=== PATIENT | male | born 1940 | race Caucasian/White ===

== ENCOUNTER 2017-08-09 10:39 | Inpatient (IN) | payer MEDICARE, OTHER ==
[~2017-08-09] VITALS: Ht 167.6 cm; Wt 72.6 kg
[2017-08-09] VITALS (21 sets, daily range): BP systolic 97–165; BP diastolic 55–99
--- NOTE | 2017-08-09 10:39 | NUR ---
BIBRA 102 C/O N/V/D X YESTERDAY. C/O DIFFUSE LOWER QUADRANT ABD PAIN. PLACED ON MONITOR. AWAITING MD ORDER
[2017-08-09] MEDS ORDERED: IOHEXOL-350 100 ML VIAL IV ONE (11:17)
[2017-08-09 11:23] LABS: BASOPHILS % (AUTO) 0.8 % (0.0-2.0); EOSINOPHILS % (AUTO) 0.8 % (0.0-6.0); HEMATOCRIT 39 % (39-51); HEMOGLOBIN 13.2 g/dL (13.5-17.5); LYMPHOCYTES # (AUTO) 1.6 /CMM (0.8-4.8); LYMPHOCYTES % (AUTO) 33.8 % (20.0-44.0); MEAN CORPUSCULAR HGB CONC 34 g/dl (31.0-36.0); MEAN CORPUSCULAR VOLUME 89 fL (80-96); MONOCYTES # (AUTO) 0.3 /CMM (0.1-1.30); MONOCYTES % (AUTO) 6.7 % (2.0-12.0); NEUTROPHILS # (AUTO) 2.9 /CMM (1.8-8.9); NEUTROPHILS % (AUTO) 57.9 % (43.0-81.0); PLATELET COUNT (AUTO) 235 /CMM (150-450); RDW COEFFICIENT OF VARIATION 12.3 (11.5-15.0); RED BLOOD CELL COUNT(AUTO) 4.33 MIL/uL (4.5-6.0); WHITE BLOOD COUNT (AUTO) 4.8 K/uL (4.3-11.0)
--- NOTE | 2017-08-09 11:27 | NUR ---
PT TAKEN TO CT
[2017-08-09 11:28] LABS: CALCIUM, SERUM 8.9 mg/dL (8.5-10.1); CARBON DIOXIDE 28 mmol/L (21-32); CHLORIDE 106 mmol/L (98-107); GLUCOSE 122 mg/dL (74-106); POTASSIUM 3.9 mmol/L (3.5-5.1); SODIUM SERUM 138 mmol/L (136-145); UREA NITROGEN, BLOOD 21 mg/dL (7-18)
--- NOTE | 2017-08-09 11:28 | NUR ---
URINE SAMPLE COLLECTED SENT TO LAB
[2017-08-09 11:30] LABS: APPEARANCE,URINE Clear (CLEAR); BILIRUBIN,URINE Negative (NEGATIVE); BLOOD, URINE Negative Ery/uL (NEGATIVE); COLOR,URINE Yellow (YELLOW); KETONES,URINE Negative (NEGATIVE); LEUKOCYTE ESTERASE ,URINE Negative (NEGATIVE); NITRITE, URINE Negative (NEGATIVE); PH,URINE 7.5 (5.0-8.0); PROTEIN,URINE Negative (NEGATIVE); UGLUCOSE Negative (NEGATIVE); UROBILINOGEN,URINE 0.2 EU/dL (0.2)
[2017-08-09] MEDS ORDERED: IV NS 0.9% 1,000 ML BAG IV ONE (11:30)
[2017-08-09] MEDS ORDERED: ONDANSETRON HCL/PF 4 MG/2 ML VIAL IVP ONE (11:30)
[2017-08-09] MEDS ORDERED: MORPHINE SULFATE INJ 2 MG/ML DISP.SYRIN IV ONE (11:30)
[2017-08-09 11:31] LABS: INR 1.03 (0.85-1.15)
[2017-08-09] MEDS ORDERED: ONDANSETRON HCL/PF 4 MG/2 ML VIAL ONE (11:34)
[2017-08-09 11:35] LABS: ALANINE AMINOTRANSFERASE 13 U/L (12-78); ALBUMIN 3.5 g/dL (3.4-5.0); ALKALINE PHOSPHATASE 103 U/L (46-116); ASPARTATE AMINOTRANSFERASE 15 U/L (15-37); BILIRUBIN,DIRECT 0.1 mg/dL (0.0-0.2); BILIRUBIN,TOTAL 0.5 mg/dL (0.2-1.0); TOTAL PROTEIN, SERUM 6.9 g/dL (6.4-8.2)
[2017-08-09] MEDS ORDERED: MORPHINE SULFATE INJ 4 MG/ML DISP.SYRIN ONE (11:35)
[2017-08-09 11:36] LABS: TROPONIN I < 0.017 ng/mL (0.00-0.056)
[2017-08-09] MEDS ORDERED: LABETALOL HCL IV 100MG VIAL ONE (13:18)
--- NOTE | 2017-08-09 13:21 | NUR ---
CALLED ANSWERING SERVICE, SINTER MACHINE OPERATOR, TRANSFERRED CALL TO .
--- NOTE | 2017-08-09 13:25 | NUR ---
NOTIFIED MD MELENDEZ OF HEART RATE 47-50 BPM. BETABLOCKER ADMINISTRATION TO PUT ON HOLD TILL FURTHER ORDER
[2017-08-09] MEDS ORDERED: NITROPRUSSIDE SODIUM 50 MG in IV D5W 250 ML IV PRN (13:30)
[2017-08-09] MEDS ORDERED: ESMOLOL IVPB PREMIX 250 ML IV PRN (13:30)
[2017-08-09] MEDS ORDERED: LABETALOL 20 MG/4 ML VIAL IV ONE (13:30)
--- NOTE | 2017-08-09 13:30 | NUR ---
EPIC PAGED, BILL CLERK
--- NOTE | 2017-08-09 13:30 | NUR ---
PATIENT REFUSED SECOND IV INSERTION, EXPLAINED RISKS AND BENEFITS, STARTED YELLING AND CURSING. NOTIFIED
[2017-08-09] MEDS ORDERED: NTG 50 MG/D5W250 ML BOTTL 250 ML IV ONE ×2 (13:48→14:00)
--- NOTE | 2017-08-09 13:51 | NUR ---
[facility] REPAGED
--- NOTE | 2017-08-09 13:57 | NUR ---
STARTED PATIENT ON NITRO DRIP PER MD ORDER.
--- NOTE | 2017-08-09 14:00 | NUR ---
PATIENT DENIES ANY PAIN AT THIS TIME
--- NOTE | 2017-08-09 14:33 | NUR ---
ICU 254 FOR AAA, ADMITTING
--- NOTE | 2017-08-09 14:45 | NUR ---
PATIENT ASLEEP. VSS
--- NOTE | 2017-08-09 14:55 | NUR ---
REPORT GIVEN TO HAMMAD DONOHUE
--- NOTE | 2017-08-09 15:16 | NUR ---
PATIENT STATED "I AM DOCTOR VERONIKA/ CINDY MASTERS'S PATIENT" DURING TRANSFER IN ICU
--- NOTE | 2017-08-09 15:18 | NUR ---
PATIENT WOKE UP, UPSET, BEING IN S[facility],. EXPLAINED TO THE PATIENT THE RISKS AND BENEFITS OF STAYING THE HOSPITAL. AGREED
--- NOTE | 2017-08-09 15:20 | NUR ---
RN INITIAL NOTES RECEIVED PT FROM ER VIA YOHAN. PT AWAKE, A/OX4. PLACED COMFORTABLY IN BED. CONNECTED TO MONITOR. PT SINUS BRADYCARDIA, 55. IV LINE IN PLACE. ON NITROGLYCERIN DRIP AT 50MCG/MIN. PT C/O ABDOMINAL PAIN, TENDER TO TOUCH. BODY ASSESSMENT DONE. LEFT FOOT SCAB NOTED. PICTURE TAKEN AND PLACED IN THE CHART. PT CONTINENT. PREFERS TO USE URINAL. BLE ELEVATED. DR. WAYNE AWARE OF ADMISSION. ADMISSION ORDERS NOTED AND CARRIED OUT. AWAITING DR. ROCHE FOR CONSULT. PT COMFORTABLE. ORIENTED TO ROOM AND USE OF CALL LIGHT. WILL CONTINUE TO MONITOR.
[2017-08-09] MEDS ORDERED: ONDANSETRON HCL/PF 4 MG/2 ML VIAL IVP PRN (15:30)
[2017-08-09] MEDS ORDERED: MAGNESIUM HYDROXIDE 30 ML UDC PO PRN (15:30)
[2017-08-09] MEDS ORDERED: MORPHINE SULFATE INJ 2 MG/ML DISP.SYRIN IV PRN ×2 (15:30)
[2017-08-09] MEDS ORDERED: MAG HYDROX/AL HYDROX/SIMETH 30 ML UDC PO PRN (15:30)
[2017-08-09] MEDS ORDERED: Z GUARD REMEDY 2 OZ OINT TP PRN (15:30)
[2017-08-09] MEDS ORDERED: ACETAMINOPHEN 325 MG TABLET PO PRN (15:30)
[2017-08-09] MEDS ORDERED: ZOLPIDEM TARTRATE 5 MG TABLET PO PRN (15:30)
[2017-08-09] MEDS ORDERED: HYDROCODONE/APAP 5/325MG 1 EACH TABLET PO PRN (15:30)
--- NOTE | 2017-08-09 15:58 | NUR ---
RN NOTES CALLED DR WAYNE TO CLARIFY NITROPRUSSIDE ORDER FROM ER. PT RECEIVED FROM ER WITH NITROGLYCERIN DRIP AT 50MCG/MIN. PT'S SBP 130S, HR 50S. CLARIFIED NITROPRUSSIDE PARAMETER TO KEEP SBP <140. NOTED AND CARRIED OUT.
[2017-08-09] MEDS: NITROPRUSSIDE SODIUM 50 MG in IV D5W 250 ML IV PRN (16:24)
--- NOTE | 2017-08-09 16:30 | NUR ---
RN NOTES SEEN AND EXAMINED BY DR. WAYNE. PT A/OX4. C/O LESS ABDOMINAL PAIN, GIVEN NORCO ORDERED, NOTED EFFECTIVE. PT STARTED ON NITROPRUSSIDE AT 0.1MCG/KG/MIN. HR 48, SBP 130S. DR. WAYNE AWARE. PER MD, KEEP SBP <140. HR WILL GO LOWER IF PT IS PLACED ON OTHER DRIPS. WILL CLOSELY MONITOR.
--- NOTE | 2017-08-09 18:50 | NUR ---
RN CLOSING NOTES PT STABLE. DENIES ABDOMINAL PAIN. REMAINS ON NITROPRUSSIDE DRIP AT 0.2MCG/KG/MIN. SBP 114, HR 60S. PICC LINE TO BE INSERTED. CONSENT SIGNED BY PT. KEPT CLEAN AND DRY. ALL NEEDS ATTENDED AND MET. CALL LIGHT WITHIN REACH. WILL ENDORSE FOR CONTINUITY OF CARE.
--- NOTE | 2017-08-09 19:38 | NUR ---
ICU/RN PICC LINE VIA RT BRACHIAL IN PLACE ,STAT CXR DONE.NITROPRUSSIDE AT 0.3MCG/KG/MIN. WITH SBP OF 137MM/HG.OFFERS NO COMPLAINTS.
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
[2017-08-09] MEDS ORDERED: LORAZEPAM INJ 2 MG/ML VIAL ONE (21:47)
[2017-08-09] MEDS: LORAZEPAM INJ 2 MG/ML VIAL IV PRN (21:51)
[2017-08-10] VITALS (93 sets, daily range): BP systolic 104–179; BP diastolic 45–107
[2017-08-10] MEDS: IV NS 0.9% 250 ML IV PRN ×2 (00:40→22:34)
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
[2017-08-10] MEDS: LORAZEPAM INJ 2 MG/ML VIAL IV PRN (04:20)
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
--- NOTE | 2017-08-10 07:20 | NUR ---
ICU/RN REPORT AND CARE OF PT GIVEN TO LESLEY Winter
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
--- NOTE | 2017-08-10 08:20 | NUR ---
WET PROCESS MILLER HEAD ASSISTANT: pt.is more cooperative now, oriented for POC, pain down to 2-3/10, good appetite, charge nurse updated with all above, ordered EKG stat, cardiac meds, ok to titrate off Nitropress, see new orders, abd.XR KUB, called to RD to get final abd.CT result
[2017-08-10] MEDS ORDERED: CLONIDINE HCL 0.2MG/24H PTWK 1 EA PATCH TD SCH (08:30)
[2017-08-10] MEDS: NITROGLYCERIN 30 GM TUBE TP SCH ×2 (08:59→20:11)
[2017-08-10] MEDS: CARVEDILOL 6.25 MG TABLET PO SCH ×2 (08:59→20:08)
--- NOTE | 2017-08-10 10:09 | NUR ---
DIRECTOR GIFT pt.sleeps now, no any c/o, SR, continue titrate Nitropress gtt
[2017-08-10 11:40] LABS: CALCIUM, SERUM 8.9 mg/dL (8.5-10.1); CARBON DIOXIDE 23 mmol/L (21-32); CHLORIDE 105 mmol/L (98-107); CREATININE 0.9 mg/dL (0.6-1.3); GLUCOSE 167 mg/dL (74-106); MAGNESIUM 2.2 mg/dL (1.8-2.4); PHOSPHORUS 3.5 mg/dL (2.5-4.9); POTASSIUM 3.6 mmol/L (3.5-5.1); SODIUM SERUM 136 mmol/L (136-145); UREA NITROGEN, BLOOD 18 mg/dL (7-18)
--- NOTE | 2017-08-10 12:05 | NUR ---
HOSPICE CHAPLAIN: pt.is rest now, sleepy, cooperative now, but with risk to remove IV lines, tubes, no pain, O2 sat. over 94%, SBP 142-154, resumed Nitropress gtt 0.1-0.5 mcg/kg/min, SR/SB 56-64, PM/bath//skin care done, spoke with correctional case records supervisor, pt.has cousin, pt.is oriented for POC, meds, orders
[2017-08-10 13:37] LABS: CHOLESTEROL 192 mg/dL (<200); HDL CHOLESTEROL 47 mg/dL (40-60); LDL 133 mg/dL (0-99); TRIGLYCERIDES 88 mg/dL (30-150)
--- NOTE | 2017-08-10 15:20 | NUR ---
DERRICK BOAT LEVERMAN: still on Nitropress gtt 0.5-0.7 mcg/kg/m, HR 53-62, O2sat. over 96%, called, updated with all above, VS, pt.mental/neuro status, said: continue titrate Nitropress gtt, going to order Norvasc, ?Coreg order d/t SB, Coreg order is with parameters: hold if HR below 50, SBP below 105 by , will notify next nurse
[2017-08-10] MEDS ORDERED: AMLODIPINE BESYLATE 5 MG TABLET PO SCH (15:30)
[2017-08-10 17:03] LABS: BASOPHILS % (AUTO) 0.1 % (0.0-2.0); HEMATOCRIT 31 % (39-51); HEMOGLOBIN 10.4 g/dL (13.5-17.5); LYMPHOCYTES # (AUTO) 0.4 /CMM (0.8-4.8); MEAN CORPUSCULAR HGB CONC 33 g/dl (31.0-36.0); MEAN CORPUSCULAR VOLUME 94 fL (80-96); MONOCYTES # (AUTO) 0.6 /CMM (0.1-1.30); MONOCYTES % (AUTO) 2.6 % (2.0-12.0); NEUTROPHILS # (AUTO) 21.3 /CMM (1.8-8.9); NEUTROPHILS % (AUTO) 95.3 % (43.0-81.0); PLATELET COUNT (AUTO) 176 /CMM (150-450); RDW COEFFICIENT OF VARIATION 17.1 (11.5-15.0); RED BLOOD CELL COUNT(AUTO) 3.32 MIL/uL (4.5-6.0); WHITE BLOOD COUNT (AUTO) 22.3 K/uL (4.3-11.0)
[2017-08-10 17:30] LABS: LYMPHOCYTES % (MANUAL) 2 % (16-48); MONOCYTES % (MANUAL) 4 % (0-11.0); NEUTROPHILS % (MANUAL) 94 (42-76)
[2017-08-10] MEDS: NITROPRUSSIDE SODIUM 50 MG in IV D5W 250 ML IV PRN (17:37)
--- NOTE | 2017-08-10 18:14 | NUR ---
A/C TECH pt.is A/Ox3, more active and cooperative now, was oriented again for injury risk with uncontrolled attempt to leave bed, no any pain now, SR now, still on Nitropress gtt, 0.8 mcg/kg/min, continue titrate down now, O2 sat. WNL, is in room, updated with all above, waiting (cardiovasc.surgeon) for visit/consult, pt.was oriented for POC again
--- NOTE | 2017-08-10 18:45 | NUR ---
ANY COMMODITY SALES DELIVERER: pt.caregiver is in room, notified re pt.current status, VS, orders, POC, got , case checkertax services manager information
--- NOTE | 2017-08-10 19:30 | NUR ---
SCALE CLERK INITIAL SHIFT NOTES RECEIVED REPORT FROM DAY SHIFT NURSE LESLEY. RECEIVED PATIENT IN BED, SLEEPING, EASILY AROUSABLE FROM SLEEP, CAREGIVER AND DAY SHIFT 1:1 SITTER AT BEDSIDE. PATIENT IS CALM, ALERT AND ORIENTED X2-3, ABLE TO VERBALIZE NEEDS. PLAN OF CARE DISCUSSED WITH THE PATIENT, WHO VERBALIZES UNDERSTANDING, ONLY REQUEST IS FOR WARM BLANKET AT THIS TIME. WARM BLANKET GIVEN. PATIENT ON TELEMETRY MONITORING, REVEALING SINUS RHYTHM, HR = 62 BPM AT THIS TIME. AMARIS PICC AND PERIPHERAL IVs PATENT AND INTACT, FLUSHED WITH NS, ALL IV SITES FREE FROM ANY S/S OF INFILTRATION OR PHLEBITIS. ONGOING NITROPRUSSIDE SODIUM DRIP, CURRENTLY @ 0.8 MCG/KG/MIN, WILL TRY TO TITRATE DOWN PATIENT TOLERATES. CALL LIGHT LEFT WITHIN EASY REACH, BED IN LOWEST AND LOCKED POSITION. WILL CONTINUE TO CLOSELY MONITOR
--- NOTE | 2017-08-10 22:15 | NUR ---
GRASSLAND CONSERVATIONIST NOTES PATIENT NOTED TO BE CONFUSED WHEN WAKING UP. PATIENT REORIENTED NEEDED. WILL CONTINUE TO CLOSELY MONITOR
[2017-08-11] VITALS (93 sets, daily range): BP systolic 87–167; BP diastolic 41–109
--- NOTE | 2017-08-11 00:15 | NUR ---
WEB CONTENT SPECIALIST NOTES BP DROPPED TO 90/43. PATIENT NOTED TO BE IN DEEP SLEEP. WHEN RECHECKED, SBP REMAINS < 100. NITROPRUSSIDE DRIP PLACED ON HOLD DUE TO LOW BP. WILL CONTINUE TO CLOSELY MONITOR
--- NOTE | 2017-08-11 01:00 | NUR ---
EDUCATION RESEARCH ANALYST NOTES NITROPRUSSIDE SODIUM DRIP RESTARTED DUE TO ELEVATED BP. PATIENT'S BP NOTED TO BE SENSITIVE TO SMALL TITRATION/CHANGES IN NITROPRUSSIDE SODIUM DRIP. WILL CONTINUE TO CLOSELY MONITOR. PATIENT REORIENTED FREQUENTLY NEEDED
[2017-08-11 04:47] LABS: BASOPHILS % (AUTO) 0.3 % (0.0-2.0); EOSINOPHILS % (AUTO) 1.1 % (0.0-6.0); HEMATOCRIT 32 % (39-51); HEMOGLOBIN 10.7 g/dL (13.5-17.5); LYMPHOCYTES # (AUTO) 1.7 /CMM (0.8-4.8); LYMPHOCYTES % (AUTO) 26.8 % (20.0-44.0); MEAN CORPUSCULAR HGB CONC 33 g/dl (31.0-36.0); MEAN CORPUSCULAR VOLUME 90 fL (80-96); MONOCYTES # (AUTO) 0.5 /CMM (0.1-1.30); NEUTROPHILS % (AUTO) 63.8 % (43.0-81.0); PLATELET COUNT (AUTO) 185 /CMM (150-450); RDW COEFFICIENT OF VARIATION 13.3 (11.5-15.0); RED BLOOD CELL COUNT(AUTO) 3.57 MIL/uL (4.5-6.0); WHITE BLOOD COUNT (AUTO) 6.2 K/uL (4.3-11.0)
[2017-08-11 05:09] LABS: ALANINE AMINOTRANSFERASE 14 U/L (12-78); ALBUMIN 2.8 g/dL (3.4-5.0); ALKALINE PHOSPHATASE 83 U/L (46-116); ASPARTATE AMINOTRANSFERASE 13 U/L (15-37); BILIRUBIN,TOTAL 0.4 mg/dL (0.2-1.0); CALCIUM, SERUM 8.6 mg/dL (8.5-10.1); CARBON DIOXIDE 26 mmol/L (21-32); CHLORIDE 106 mmol/L (98-107); GLUCOSE 120 mg/dL (74-106); MAGNESIUM 2.1 mg/dL (1.8-2.4); PHOSPHORUS 3.5 mg/dL (2.5-4.9); POTASSIUM 3.4 mmol/L (3.5-5.1); SODIUM SERUM 140 mmol/L (136-145); TOTAL PROTEIN, SERUM 5.8 g/dL (6.4-8.2); UREA NITROGEN, BLOOD 21 mg/dL (7-18)
[2017-08-11 05:12] LABS: TROPONIN I < 0.017 ng/mL (0.00-0.056)
--- NOTE | 2017-08-11 06:08 | NUR ---
CARDIOLOGY SPECIALIST CLOSING NOTES PATIENT LAYING IN BED, ASLEEP AT THIS TIME. PATIENT CONTINUES ON NITROPRUSSIDE SODIUM DRIP, CURRENTLY RUNNING AT 0.7MCG/KG/MIN. DRIP TITRATED ACCORDINGLY THROUGHOUT SHIFT. DRIP TURNED OFF FOR 45 MINUTES DUE TO LOW BP, BUT RESTARTED AFTER SBP SUSTAINED > 140. Addendum: 08/11/17 at 0622 by IMER RODRIGUEZ RN WILL ENDORSE THE PATIENT TO THE AM SHIFT NURSE FOR CONTINUITY OF CARE
--- NOTE | 2017-08-11 07:30 | NUR ---
RECEIVED PATIENT A/OX3 PERIODS OF CONFUSION AND AGITATION WHEN BEING WOKEN UP OR IF STARTLED. PATIENT 2LPM NC 98% WILL TITRATE DOWN TOLERATED. PATIENT WITH NITROPRUS DRIP AT 0.8 WILL TITRATE ABLE PER MD ORDER. IV SITES CLEAN DRY INTACT AND PATENT. PATIENT USES URINAL. SAFETY PRECAUTIONS IN PLACE WILL ROUND NEEDED. ALL NEEDS IN REACH.
[2017-08-11] MEDS: POTASSIUM CHLORIDE 20 MEQ TAB.PRT.SR PO SCH ×2 (08:17→09:00)
[2017-08-11] MEDS: AMLODIPINE BESYLATE 5 MG TABLET PO SCH (08:17)
[2017-08-11] MEDS: CARVEDILOL 6.25 MG TABLET PO SCH ×2 (08:18→21:23)
[2017-08-11] MEDS: NITROGLYCERIN 30 GM TUBE TP SCH ×2 (08:22→21:23)
--- NOTE | 2017-08-11 08:30 | NUR ---
PATIENT BLOOD PRESSURE RISES WITH ACTIVITY. PATIENT EATING BREAKFAST AT THIS TIME. CALLED PHARMACY TO HAVE MORE NITROPRUSS DELIVERED WE ARE NEARING END. SPOKE WITH SONYA
--- NOTE | 2017-08-11 09:30 | NUR ---
PATIENT NOT WANTING TO TAKE 2ND POTASSIUM AT THIS TIME. WILL ATTEMPT AGAIN
--- NOTE | 2017-08-11 10:15 | NUR ---
ASSISTED PATIENT TO BSC. GETTING OUT OF BED BY HIMSELF. BED ALARM ON AND SAFETY PRECAUTIONS IN PLACE. NOT WANTING K PILL. WILL TRY AGAIN
[2017-08-11] MEDS: NITROPRUSSIDE SODIUM 50 MG in IV D5W 250 ML IV PRN (10:18)
--- NOTE | 2017-08-11 11:00 | NUR ---
PER DR ROCHE PATIENT PAIN IS UNRELATED TO AORTIC PROBLEM.
--- NOTE | 2017-08-11 11:00 | NUR ---
DR ROCHE AT BEDSIDE. PER MD NO INTERVENTION NECESSARY AT THIS TIME. NO DISSECTION NOTED.
[2017-08-11] MEDS ORDERED: hydrALAZINE HCL 25 MG TABLET PO PRN (12:00)
--- NOTE | 2017-08-11 12:00 | NUR ---
PER DR ROSANA RICHARDSON TO STOP DRIP AND FOR BP OVER 160 SYSTOLIC PRN HYDRALAZINE ORDERED.
--- NOTE | 2017-08-11 12:16 | NUR ---
UNABLE TO REMOVE 20MEQ K DUR FROM PYXIS TIME . NEW ORDER ADDED TO COMPLETE DR CORDERO ORDER OF 40MEQ K DUR PO.
[2017-08-11] MEDS ORDERED: POTASSIUM CHLORIDE 20 MEQ TAB.PRT.SR PO ONE (12:30)
--- NOTE | 2017-08-11 18:50 | NUR ---
ALL DUE MEDS GIVEN AND ALL NEEDS MET. PATIENT COOPERATIVE TODAY, DIFFICULTY LISTENING TO NOT GET OUT OF BED WITHOUT ASSISTANCE. BED ALARM AND SAFETY PRECAUTIONS IN PLACE. VS STABLE. OFF NITROPR. SINCE NOON TODAY NO PRN HYDRALAZINE NEEDED. ALL NEEDS IN REACH. ROOM AIR STABLE 95%
--- NOTE | 2017-08-11 19:30 | NUR ---
BIOLOGICAL INSPECTOR INITIAL SHIFT NOTES RECEIVED REPORT FROM DAY SHIFT NURSE CHEPE. PATIENT IS AWAKE, ALERT AND ORIENTED, BUT HAS PERIODS OF CONFUSION, NEEDING FREQUENT REORIENTATION, REDIRECTABLE. RECEIVED PATIENT IN BED, THEN ASSISTED TO BEDSIDE COMMODE, VOID X1. BREATHING IS EVEN AND NONLABORED WHILE ON ROOM AIR, TOLERATING WELL, FREE FROM ANY S/S OF RESPIRATORY DISTRESS. ON TELEMETRY MONITORING, SHOWING SINUS RHYTHM. RIGHT UPPER ARM PICC PATENT AND INTACT, NOTED WITH GOOD VENOUS RETURN. ATTEMPTED TO EDUCATE PATIENT REGARDING CALL LIGHT USE, BUT PATIENT REFUSES. BED ALARM ON FOR SAFETY PRECAUTIONS. BED IN LOWEST AND LOCKED POSITION. WILL CONTINUE TO CLOSELY MONITOR THE PATIENT
--- NOTE | 2017-08-11 22:00 | NUR ---
COLLAR TRIMMER NOTES PATIENT'S SBP > 140. PATIENT NOTED TO BE LAYING ON LEFT ARM, WHERE BP CUFF IS LOCATED. PATIENT REFUSING TO LAY SUPINE TO HAVE BP CUFF ADJUSTED AND BP RECHECKED. PATIENT STATES "LEAVE ME ALONE, IM TRYING TO SLEEP." ATTEMPTED TO EDUCATE PATIENT REGARDING NEED TO HAVE ACCURATE BP READINGS, BUT PATIENT STILL STRONGLY REFUSING TO FOLLOW INSTRUCTIONS
[2017-08-12] VITALS (75 sets, daily range): BP systolic 78–166; BP diastolic 37–105
[2017-08-12 04:28] LABS: BASOPHILS % (AUTO) 0.4 % (0.0-2.0); EOSINOPHILS % (AUTO) 1.6 % (0.0-6.0); HEMATOCRIT 35 % (39-51); HEMOGLOBIN 11.6 g/dL (13.5-17.5); LYMPHOCYTES % (AUTO) 29.6 % (20.0-44.0); MEAN CORPUSCULAR HGB CONC 33 g/dl (31.0-36.0); MEAN CORPUSCULAR VOLUME 93 fL (80-96); MONOCYTES # (AUTO) 0.5 /CMM (0.1-1.30); MONOCYTES % (AUTO) 7.6 % (2.0-12.0); NEUTROPHILS % (AUTO) 60.8 % (43.0-81.0); PLATELET COUNT (AUTO) 193 /CMM (150-450); RDW COEFFICIENT OF VARIATION 13.4 (11.5-15.0); RED BLOOD CELL COUNT(AUTO) 3.75 MIL/uL (4.5-6.0); WHITE BLOOD COUNT (AUTO) 6.7 K/uL (4.3-11.0)
[2017-08-12 04:54] LABS: ALANINE AMINOTRANSFERASE 14 U/L (12-78); ALKALINE PHOSPHATASE 88 U/L (46-116); ASPARTATE AMINOTRANSFERASE 12 U/L (15-37); BILIRUBIN,TOTAL 0.3 mg/dL (0.2-1.0); CALCIUM, SERUM 8.8 mg/dL (8.5-10.1); CARBON DIOXIDE 26 mmol/L (21-32); CHLORIDE 107 mmol/L (98-107); GLUCOSE 113 mg/dL (74-106); MAGNESIUM 2.2 mg/dL (1.8-2.4); PHOSPHORUS 3.1 mg/dL (2.5-4.9); POTASSIUM 3.8 mmol/L (3.5-5.1); SODIUM SERUM 141 mmol/L (136-145); TOTAL PROTEIN, SERUM 6.4 g/dL (6.4-8.2); UREA NITROGEN, BLOOD 21 mg/dL (7-18)
--- NOTE | 2017-08-12 05:05 | NUR ---
MATH AND PHYSICS INSTRUCTOR NOTES PATIENT AGAIN NOTED SLEEPING ON LEFT LATERAL SIDE, WHERE BP CUFF REMAINS. BP READING 159/64. ATTEMPTED TO RECHECK BP BUT PATIENT RESISTANT, REFUSING TO BE TOUCHED, STATING "LEAVE ME ALONE." PATIENT OTHERWISE IN NO ACUTE DISTRESS. WILL CONTINUE TO CLOSELY MONITOR
--- NOTE | 2017-08-12 06:21 | NUR ---
FORM TAMPER NOTES BP READING 166/79. PATIENT REFUSING TO LET ME RECHECK. UPON ASSESSMENT, PATIENT AGAIN LAYING ON LEFT LATERAL SIDE WHERE BP CUFF IS, STATING "DON'T TOUCH ME, LEAVE ME ALONE." OTHERWISE, PATIENT IN NO ACUTE DISTRESS, DENIES PAIN OR DISCOMFORT.
--- NOTE | 2017-08-12 06:50 | NUR ---
CALL CENTER SUPPORT CONSULTANT CLOSING NOTES NO ACUTE CHANGES THROUGHOUT THE SHIFT. PATIENT AGITATED AT TIMES THROUGHOUT THE SHIFT, [id number] CLOSELY. WILL ENDORSE THE PATIENT TO THE AM SHIFT NURSE FOR CONTINUITY OF CARE
--- NOTE | 2017-08-12 07:14 | NUR ---
RECEIVED PATIENT A/OX3 AGITATED AT TIMES AND AT TIMES UNCOOPERATIVE. PATIENT ASSISTED TO COMMODE AND LINENS, GOWN AND HYGIENE COMPLETED. PATIENT LAYING ON ARM WITH BLOOD PRESSURE CUFF. MANUAL BP COMPLETED- 130/66. BED ALARM ON. SAFETY PRECAUTIONS IN PLACE. CALL LIGHT IN REACH. WILL MONITOR
[2017-08-12] MEDS: ISOSORBIDE DINITRATE (20MG) 20 MG TABLET PO SCH ×2 (08:17→16:14)
[2017-08-12] MEDS: AMLODIPINE BESYLATE 5 MG TABLET PO SCH (08:17)
[2017-08-12] MEDS ORDERED: VALSARTAN 80 MG TABLET PO SCH (09:00)
[2017-08-12] MEDS: DOCUSATE SODIUM 100 MG CAPSULE PO SCH ×2 (09:00→17:00)
[2017-08-12] MEDS: CARVEDILOL 6.25 MG TABLET PO SCH ×2 (09:00→20:45)
[2017-08-12] MEDS ORDERED: hydrALAZINE HCL 50 MG TABLET PO SCH (09:00)
--- NOTE | 2017-08-12 09:47 | NUR ---
PATIENT NOTED TO HAVE ORTHOSTATIC HYPOTENSION. PATIENT BLOOD PRESSURE TRENDING UP. WILL OBTAIN BP #S ONCE PATIENT STABILIZES AND UPDATE DR CORDERO
--- NOTE | 2017-08-12 10:48 | NUR ---
MESSAGE LEFT TO DR CORDERO TO UPDATE ON PATIENT ORTHOSTATICS.
--- NOTE | 2017-08-12 11:00 | NUR ---
PER DR CORDERO CHANGE HYDRALAZINE TO 50MG TID, DISCONTINUE DIOVAN AND CONTINUE OTHERS WITH SAME PARAMETERS. MD AWARE PATIENT VS AND S/P STANDING PATIENT BP GOES TO 70'S-80'S WHILE IN BED AND TRENDS UPWARDS OVER 30 MINUTES. HR AND OXYGENATION STABLE.
--- NOTE | 2017-08-12 12:21 | NUR ---
PATIENT CONTINUES TO GET OUT OF BED WITHOUT CALLING FOR ASSISTANCE DESPITE BEING EDUCATED CONTINUOUSLY ON BLOOD PRESSURE WHEN STANDING AND POSSIBLE SIDE EFFECTS. BED ALARM CONTINUED AND SAFETY PRECAUTIONS IN PLACE.
[2017-08-12] MEDS: hydrALAZINE HCL 50 MG TABLET PO SCH ×2 (12:38→16:13)
--- NOTE | 2017-08-12 17:01 | NUR ---
PATIENT RESTING COMFORTABLY AT THIS TIME. STATES PAIN IS ALREADY DIMINISHED
--- NOTE | 2017-08-12 17:30 | NUR ---
PT VS STABLE. PATIENT IS COOPERATIVE AT THIS TIME WITH EDUCATION OF NOT GETTING OUT OF BED. BED BATH COMPLETED AND LINENS CHANGED. PATIENT REFUSED COLACE. REPORT GIVEN TO HAMMAD ANGELES FOR BAILEY
--- NOTE | 2017-08-12 17:50 | NUR ---
1715, NOTE ENTERED BY ERROR RESTING IN BED. NONLABORED BREATHING NOTED ON ROOM AIR. NO FACIAL GRIMACING NOTED. PICCLINE ON RIGHT UPPER ARM PATENT AND INTACT. IV ON RIGHT AC 20 AND IV ON LEFT HAND 20 PATENT AND INTACT. NO SIGNS OF ANXIOUSNESS NOTED. PATIENT EDUCATED ON USAGE OF CALL LIGHT. BEDSIDE COMMODE AT BEDSIDE, BED ALARM ON, CALL LIGHT WITHIN REACH.
--- NOTE | 2017-08-12 18:00 | NUR ---
PATIENT TRANSFERRED TO HAMMAD ANGELES FOR BAILEY IN STABLE CONDITION. ALL DUE MEDS GIVEN AND ALL NEEDS MET.
--- NOTE | 2017-08-12 19:20 | NUR ---
RN NOTES: RESTING IN BED. NONLABORED BREATHING NOTED ON ROOM AIR. NO FACIAL GRIMACING NOTED. PICCLINE ON RIGHT UPPER ARM PATENT AND INTACT. IV ON RIGHT AC 20 AND IV ON LEFT HAND 20 PATENT AND INTACT. NO SIGNS OF ANXIOUSNESS NOTED. PATIENT EDUCATED ON USAGE OF CALL LIGHT. BEDSIDE COMMODE AT BEDSIDE, BED ALARM ON, CALL LIGHT WITHIN REACH. ENDORSED TO NEXT SHIFT
--- NOTE | 2017-08-12 19:53 | NUR ---
MS/RN OPENING NOTES PATIENT IN BED, RESTING COMFORTABLY IN BED, RESPIRATIONS EVEN AND UNLABORED, NO GUARDING OR GRIMACE, BUT ANSWERS TO QUESTIONS WITH SIMPLE ANSWERS. WILL MONITORN AND CHECK ANY HYPO/HYPERTENSION, AND MONITOR SAFETY, SKIN WARM TO TOUCH.IV ON RIGHT AC GAUGE 20 ON LEFT HAND, W/ NO S/S OF INFILTRTAION, AMARIS PICC LINE , WITH NO S/S OF INFIL;TARTION. CALL LIGHTS WITHIN REACH, BED ALARM ON, BED IN LOCK POSITION,
[2017-08-12] MEDS: IV NS 0.9% 250 ML IV PRN (23:27)
--- NOTE | 2017-08-13 03:54 | NUR ---
PATIENT ASSISTED, WITH BED ALARM FOR SAFETY PATIENT GETS UP UNASSISTED, ALLOWED TO HAVE IV TKO RUNNING, OFFERED FLUIDS.
--- NOTE | 2017-08-13 06:25 | NUR ---
324-2 PATIENT IN BED, ABLE TO SLEEP ATLEAST 8 HOURS , REQUIRE ASSISTANCE TO TRANSFER TO BSC DUE TO UNSTEADY GAIT KEEP COMFORTABLE AND KEEP WARM, RESPIRATIONS EVEN AND UNLABORED IN ROOM AIR, ALERT X2, COOPERATIVE USUALLY BUT WITHRAWN DENIES PAIN, NO GRIMACE OR GUARDING OBSERVED. MONITORING FOR BLOOD PRESURE CHANGES, KEEP SAFE WILL ENDORSE TO AM RN FOR BAILEY.
[2017-08-13 06:44] LABS: CALCIUM, SERUM 8.6 mg/dL (8.5-10.1); CARBON DIOXIDE 24 mmol/L (21-32); CHLORIDE 106 mmol/L (98-107); CREATININE 1.1 mg/dL (0.6-1.3); GLUCOSE 114 mg/dL (74-106); POTASSIUM 3.8 mmol/L (3.5-5.1); SODIUM SERUM 141 mmol/L (136-145); UREA NITROGEN, BLOOD 26 mg/dL (7-18)
[2017-08-13 06:53] LABS: BASOPHILS % (AUTO) 0.3 % (0.0-2.0); EOSINOPHILS % (AUTO) 1.5 % (0.0-6.0); HEMATOCRIT 34 % (39-51); HEMOGLOBIN 11.7 g/dL (13.5-17.5); LYMPHOCYTES % (AUTO) 33.9 % (20.0-44.0); MEAN CORPUSCULAR HGB CONC 34 g/dl (31.0-36.0); MEAN CORPUSCULAR VOLUME 90 fL (80-96); MONOCYTES # (AUTO) 0.5 /CMM (0.1-1.30); MONOCYTES % (AUTO) 7.6 % (2.0-12.0); NEUTROPHILS # (AUTO) 3.4 /CMM (1.8-8.9); NEUTROPHILS % (AUTO) 56.7 % (43.0-81.0); PLATELET COUNT (AUTO) 195 /CMM (150-450); RDW COEFFICIENT OF VARIATION 12.6 (11.5-15.0); RED BLOOD CELL COUNT(AUTO) 3.79 MIL/uL (4.5-6.0)
--- NOTE | 2017-08-13 07:20 | NUR ---
MS/RN OPENING NOTE PATIENT IN BED AWAKE. ALERT AND ORIENTED X2. NOTED WITH EPISODES OF CONFUSION. REDIRECTION AND REORIENTATION PROVIDED. DENIES SOB. RESPIRATION REGULAR AND UNLABORED. DENIES PAIN. AMARIS PICC LINE, RAC G 20 AND LEFT HAND G 20 PATENT AND SALINE LOCKED. BED LOW AND LOCKED. BED ALARM ON. SIDE RAILS UP X3. CALL LIGHT WITHIN REACH. WILL CONTINUE TO MONITOR.
[2017-08-13 08:00] VITALS: BP 102/51
[2017-08-13] MEDS: hydrALAZINE HCL 50 MG TABLET PO SCH ×3 (09:00→16:32)
[2017-08-13] MEDS: AMLODIPINE BESYLATE 5 MG TABLET PO SCH (09:00)
[2017-08-13] MEDS: ISOSORBIDE DINITRATE (20MG) 20 MG TABLET PO SCH ×2 (09:00→16:32)
[2017-08-13] MEDS: CARVEDILOL 6.25 MG TABLET PO SCH ×2 (09:00→20:51)
[2017-08-13] MEDS: DOCUSATE SODIUM 100 MG CAPSULE PO SCH ×2 (09:02→16:31)
[2017-08-13 15:00] VITALS: BP 103/62
[2017-08-13 16:00] VITALS: BP 135/71
--- NOTE | 2017-08-13 18:06 | NUR ---
MS/RN CLOSING NOTE PATIENT IN BED AWAKE. ALERT AND ORIENTED X2. PATIENT WITH EPISODES OF FORGETFULNESS AND CONFUSION. REDIRECTION AND REORIENTATION PROVIDED. PATIENT IS NON-COMPLIANT WITH SAFETY INSTITUTIONS AND GETS UP FROM BED GOING TO COMMODE WITHOUT PRESSING A CALL LIGHT OR CALLING FOR HELP. FREQUENT VERBAL CUES ARE PROVIDED TO INCREASE SAFETY AWARENESS. RESPIRATION REGULAR AND UNLABORED. PATIENT DENIES SOB. O2 SATURATION IN ROOM AIR AT 97%. DENIES PAIN AT THIS TIME. ABDOMEN SOFT AND NON-DISTENDED. PATIENT HAD SMALL BM X1. AMARIS PICC LINE, RAC G 20 AND LEFT HAND 20 PATENT AND SALINE LOCKED. BED LOW AND LOCKED. SIDE RAILS UP X3. BED ALARM ON. CALL LIGHT WITHIN REACH. WILL ENDORSE TO LATHE SANDER.
--- NOTE | 2017-08-13 19:20 | NUR ---
MS/TOOL SETTER; RECEIVED PT IN BED AWAKE , ALERT AND VERBALLY RESPONSIVE BUT WITH PERIODS OF CONFUSION. AT THIS TIME ALSO PT WAS ASSISTED TO THE BSC BY THE DAY SHIFT RN. PT REMINDED TO CALL FOR HELP WHEN HE WANTS TO GO TO THE BSC. PICC LINE ON AMARIS INTACT AND PATENT. ALSO WITH HL ON LH .BED ON LOWER POSITION AND LOCKED FOR SAFETY. SIDE RAILS X 3 ARE UP FOR SAFETY. WILL CONTINUE TO MONITOR AND CALL LIGHT AND URINAL WITHIN REACH.
--- NOTE | 2017-08-13 19:30 | NUR ---
MS/ANTIQUE CLOCKS REPAIRER; PTM WAS VISITED BY HIS FORWARDER OPERATOR JEOVANNY LU SHE WALKED THE PT WITH WALKER AT THE [address] TOLERATED FINE. THEN PT BACK TO BED.
[2017-08-13 20:00] VITALS: BP 124/60
--- NOTE | 2017-08-14 06:53 | NUR ---
MS/INTERCHANGE AGENT; SLEPT FAIRLY. DENIES ABDOMINAL PAIN NOR N/V. BREATHING NON LABORED. WILL CONTINUE TO MONITOR. CALL LIGHT WITHIN REACH. WILL ENDORSE TO THE DAY SHIFT NURSE.
--- NOTE | 2017-08-14 07:20 | NUR ---
MS/RN OPENING NOTE PATIENT IS RECEIVED IN BED AWAKE. ALERT AND ORIENTED X2. DENIES SOB. PATIENT IN ROOM AIR AND OXYGEN SATURATION AT 97%. DENIES PAIN. PICC LINE ON AMARIS AND LEFT HAND G 20 PATENT AND SALINE LOCKED. ABDOMEN SOFT AND NON-DISTENDED. PATIENT IS CONTINENT ON BOWEL AND BLADDER AND USES BEDSIDE COMMODE AND URINAL. PATIENT. BED LOW AND LOCKED. SIDE RAILS UP X3. CALL LIGHT WITHIN REACH. WILL CONTINUE TO MONITOR.
[2017-08-14 08:00] VITALS: BP 118/55
[2017-08-14] MEDS: hydrALAZINE HCL 50 MG TABLET PO SCH ×2 (08:31→13:00)
[2017-08-14] MEDS: DOCUSATE SODIUM 100 MG CAPSULE PO SCH (08:31)
[2017-08-14] MEDS ORDERED: MAGN400O6 PO (10:22)
[2017-08-14] MEDS ORDERED: HYDR-4077 PO (10:22)
[2017-08-14] MEDS ORDERED: ISOS20TA8 PO (10:22)
[2017-08-14] MEDS ORDERED: AMLO5TAB7 PO (10:22)
[2017-08-14] MEDS ORDERED: CARV6.252 PO (10:22)
[2017-08-14] MEDS ORDERED: DOCU-141 PO (10:22)
[2017-08-14] MEDS: ISOSORBIDE DINITRATE (20MG) 20 MG TABLET PO SCH (10:33)
[2017-08-14] MEDS: AMLODIPINE BESYLATE 5 MG TABLET PO SCH (10:33)
[2017-08-14] MEDS: CARVEDILOL 6.25 MG TABLET PO SCH (10:34)
--- NOTE | 2017-08-14 10:36 | NUR ---
MS/RN NOTE NORVASC 10 MG, COREG 12.5 MG AND ISORDIL 40 MG WERE DUE AT 0900, HOWEVER, PER PATIENT REQUEST THESE MEDICATIONS WERE ADMINISTERED AT 1034. AT 1034 BLOOD PRESSURE 139/62 AND PULSE 61.
[2017-08-14 13:00] VITALS: BP 104/63
--- NOTE | 2017-08-14 13:34 | NUR ---
MS/RN NOTE RECEIVED NEW ORDER FROM JOCELYN BOYLE REGARDING REMOVING PICC LINE. NOTED AND CARRIED OUT.
--- NOTE | 2017-08-14 13:35 | NUR ---
MS/RN NOTE AMARIS PICC LINE IS REMOVED PER ORDER AND PER POLICY. NO MISSING PART. NO BLEEDING FROM THE SITE. PATIENT ALERT AND ORIENTED X2. DENIES SOB. OXYGEN SATURATION LEVEL IN ROOM AIR AT 97%. DENIES PAIN. PATIENT TOLERATED THE PROCEDURE WELL.
--- NOTE | 2017-08-14 14:05 | NUR ---
MS/RN CLOSING NOTE PATIENT ALERT AND ORIENTED X2. DISCHARGE EDUCATION/INSTRUCTIONS GIVEN TO THE PATIENT AND THE CAREGIVER. BOTH VERBALIZED UNDERSTANDING. PATIENT DENIES SOB. RESPIRATION REGULAR AND UNLABORED. DENIES PAIN. PATIENT IS PICKED UP BY THE CAREGIVER AND IN PRIVATE CAR. PATIENT LEFT THE HOSPITAL IN STABLE CONDITION.
== END 2017-08-14 14:00 | disposition home health service (06) | DRG 299 ==
LOC: ER 10:42 → EDBD 14:38 → ICU 14:38 → MED 08-12 17:53
PROVIDERS: ADMIT Internal Medicine; ATTEND Internal Medicine
PROC: 02HV33Z Insertion of Infusion Device into Superior Vena Cava, Percutaneous Approach (ICD-10-PCS; principal; 2017-08-09)
PROC: B548ZZA Ultrasonography of Superior Vena Cava, Guidance (ICD-10-PCS; 2017-08-09)
DX: I71.4 Abdominal aortic aneurysm, without rupture (principal); G93.41 Metabolic encephalopathy; E44.0 Moderate protein-calorie malnutrition; I74.09 Other arterial embolism and thrombosis of abdominal aorta; K56.7 Ileus, unspecified; I16.0 Hypertensive urgency; I10 Essential (primary) hypertension; D63.8 Anemia in other chronic diseases classified elsewhere; D72.829 Elevated white blood cell count, unspecified; E87.6 Hypokalemia; E78.5 Hyperlipidemia, unspecified; Z85.46 Personal history of malignant neoplasm of prostate
CPT/HCPCS: 36415; 36569; 71045-TC; 74018; 80048-TC; 80053-TC; 80061-TC; 80076-TC; 81000-TC; 83690-TC; 83735-TC; 84100-TC; 84484-TC; 85025-TC; 85730-TC; 86850-TC; 87081-TC; 93307-TC; 97116-TC; 97530-TC; A4606; C1751; J2060; J2270; J2405; J3490; J7030; J7050; J7060; Q9967; Z7610